=== PATIENT | female | born 1950 | race Caucasian/White ===

== ENCOUNTER 2023-01-13 10:43 | Emergency (ER) | payer MEDICARE ==
[~2023-01-13] VITALS: Ht 157.5 cm; Wt 68.0 kg
[2023-01-13 11:18] LABS: HEMATOCRIT 36.6 % (31.2-41.9); MEAN CORPUSCULAR HEMOGLOBIN 29.9 uug (24.7-32.8); MEAN CORPUSCULAR VOLUME 91.3 fL (75.5-95.3); PLATELET COUNT (AUTO) 264 K/uL (179-408)
--- NOTE | 2023-01-13 11:24 | NUR ---
ED doctor has seen the patient and EKG is done and pt is now going to CT scan.
[2023-01-13 11:31] LABS: ALANINE AMINOTRANSFERASE 25 U/L (14-59); ALKALINE PHOSPHATASE 64 U/L (50-136); ASPARTATE AMINOTRANSFERASE 24 U/L (15-37); BILIRUBIN,DIRECT 0.2 mg/dL (0.0-0.2); BILIRUBIN,TOTAL 0.9 mg/dL (0.2-1.0); CARBON DIOXIDE 26 mmol/L (21-32); CHLORIDE 104 mmol/L (98-107); CREATININE 0.6 mg/dL (0.6-1.3); GLUCOSE 101 mg/dL (74-106); TOTAL PROTEIN, SERUM 6.4 g/dL (6.4-8.2); UREA NITROGEN, BLOOD 22 mg/dL (7-18)
[2023-01-13 13:30] VITALS: BP 153/89
== END 2023-01-13 13:36 | disposition home or self-care (01) ==
LOC: ER 10:43
DX: R53.1 Weakness (principal); R51.9 Headache, unspecified; R07.89 Other chest pain
CPT/HCPCS: 36415; 70450; 71045; 84484; 85025; 93005; A4663

== ENCOUNTER 2023-01-30 23:22 | Emergency (ER) | payer MEDICARE, OTHER ==
[~2023-01-30] VITALS: Ht 157.5 cm; Wt 68.0 kg
--- NOTE | 2023-01-31 | NUR ---
Patient walked to ER with steady gait
[2023-01-31] MEDS ORDERED: HYDROMORPHONE 1 MG/1 ML DISP.SYRIN IV ONE ×2 (00:30→04:00)
[2023-01-31] MEDS ORDERED: ONDANSETRON 4 MG/2 ML VIAL IV ONE ×2 (00:30→04:00)
[2023-01-31] MEDS ORDERED: HYDROMORPHONE 1 MG/1 ML DISP.SYRIN ONE ×2 (00:46→03:48)
[2023-01-31] MEDS ORDERED: ONDANSETRON 4 MG/2 ML VIAL ONE ×2 (00:46→03:48)
[2023-01-31] MEDS ORDERED: BLOO-1730 MC ×2 (00:54→04:08)
[2023-01-31 00:55] LABS: *BILIRUBIN,URIN NEGATIVE (NEGATIVE); *BLOOD, URINE NEGATIVE (NEGATIVE); *CLARITY,URINE CLEAR (CLEAR); *COLOR,URINE YELLOW (YELLOW); *KETONES,URINE NEGATIVE (NEGATIVE); *UROBILINOGEN,URINE 0.2 E.U./dl (NORMAL); LEUKOCYTE ESTERASE ,URINE NEGATIVE (NEGATIVE); NITRITE, URINE NEGATIVE (NEGATIVE); UGLUCOSE NEGATIVE (NEGATIVE)
[2023-01-31 00:55] LABS: HEMATOCRIT 36.3 % (31.2-41.9); MEAN CORPUSCULAR HEMOGLOBIN 29.1 uug (24.7-32.8); MEAN CORPUSCULAR VOLUME 89.7 fL (75.5-95.3); PLATELET COUNT (AUTO) 343 K/uL (179-408)
[2023-01-31 01:07] LABS: CREATININE 0.8 mg/dL (0.6-1.3)
[2023-01-31] MEDS ORDERED: SWABABLE VALVE TRANSFER SET EA MC ONE (01:55)
[2023-01-31] MEDS ORDERED: IOHEXOL 300MG/ML 100 ML INFUS..BTL ONE (01:55)
[2023-01-31] MEDS ORDERED: IV NORMAL SALINE 250 ML IV ONE (01:57)
--- NOTE | 2023-01-31 02:10 | NUR ---
Patient taken to CT in stable condition by roly López via wheelchair
--- NOTE | 2023-01-31 02:22 | NUR ---
Patient is back from CT scan
[2023-01-31] MEDS ORDERED: HYDR-3980 PO (03:59)
[2023-01-31 04:35] LABS: BILIRUBIN,DIRECT 0.1 mg/dL (0.0-0.2); BILIRUBIN,TOTAL 0.3 mg/dL (0.2-1.0)
--- NOTE | 2023-01-31 04:39 | NUR ---
Patient discharged to home in stable condition. Written and verbal after care instructions given. Patient verbalizes understanding of instructions. Stressed follow up or return to ER for worsening s/s. Patient is a/ox4, NAD noted. patient accompanied by her niece
[2023-01-31 04:40] VITALS: BP 138/78
== END 2023-01-31 04:40 | disposition home or self-care (01) ==
LOC: ER 23:25
DX: S22.42XA Multiple fractures of ribs, left side, initial encounter for closed fracture (principal); D72.0 Genetic anomalies of leukocytes; R73.9 Hyperglycemia, unspecified; Z90.710 Acquired absence of both cervix and uterus; Z79.899 Other long term (current) drug therapy; W01.0XXA Fall on same level from slipping, tripping and stumbling without subsequent striking against object, initial encounter; Y93.89 Activity, other specified; Y92.89 Other specified places as the place of occurrence of the external cause; Y99.8 Other external cause status
CPT/HCPCS: 99285; 74177; 96374; 96375; 80076; 80048; 81003; 85025; 36415; 71101; 96376; J2405 ×2; Q9967; J1170 ×2; A4663

== ENCOUNTER → 2025-03-05 | Emergency (ER) | payer MEDICARE ==
[~2025-03-05] VITALS: Ht 162.6 cm; Wt 66.2 kg
[~2025-03-05] MED LIST: BLOO-1730 MC; HYDR-3980 PO; LORAZEPAM 0.5 MG TABLET ONE
[2025-03-05 12:54] VITALS: O2SAT 98
[2025-03-05] MEDS: LORAZEPAM 0.5 MG TABLET PO ONE (13:39)
[2025-03-05 13:44] LABS: BASOPHILS # (AUTO) 0.1 K/UL (0.0-0.2); EOSINOPHILS # (AUTO) 0.1 K/uL (0.0-0.7); EOSINOPHILS % (AUTO) 1.8 % (0.0-7.0); HEMATOCRIT 31.2 % (31.2-41.9); HEMOGLOBIN 10.6 g/dL (10.9-14.3); LYMPHOCYTES # (AUTO) 1.2 K/uL (0.8-4.8); LYMPHOCYTES % (AUTO) 22.8 % (20.5-51.5); MEAN CORPUSCULAR HEMOGLOBIN 33.3 uug (24.7-32.8); MEAN CORPUSCULAR HGB CONC 34 g/dL (32.3-35.6); MEAN CORPUSCULAR VOLUME 98.2 fL (75.5-95.3); MONOCYTES # (AUTO) 0.2 K/uL (0.1-1.30); MONOCYTES % (AUTO) 4.6 % (0.0-11.0); NEUTROPHILS # (AUTO) 3.6 K/uL (1.8-8.9); NEUTROPHILS % (AUTO) 69.8 % (38.5-71.5); PLATELET COUNT (AUTO) 200 K/uL (179-408); RED BLOOD CELL COUNT(AUTO) 3.18 MIL/uL (3.63-4.92); RED CELL DISTRIBUTION WIDTH 15.6 % (12.3-17.7); WHITE BLOOD COUNT (AUTO) 5.2 K/uL (3.8-11.8)
[2025-03-05 13:52] LABS: DIFFERENTIAL COMMENT 1
[2025-03-05 13:54] LABS: CARBON DIOXIDE 26 mmol/L (21-32); CHLORIDE 101 mmol/L (98-107); CREATININE 0.6 mg/dL (0.6-1.3); GLUCOSE 104 mg/dL (74-106); SODIUM SERUM 136 mmol/L (136-145); UREA NITROGEN, BLOOD 14 mg/dL (7-18)
[2025-03-05 14:01] LABS: ALANINE AMINOTRANSFERASE 28 U/L (14-59); ALBUMIN 3.2 g/dL (3.4-5.0); ALKALINE PHOSPHATASE 66 U/L (50-136); ASPARTATE AMINOTRANSFERASE 28 U/L (15-37); BILIRUBIN,DIRECT 0.1 mg/dL (0.0-0.2); BILIRUBIN,TOTAL 0.4 mg/dL (0.2-1.0); TOTAL PROTEIN, SERUM 6.1 g/dL (6.4-8.2)
== END | disposition home or self-care (01) ==
LOC: ER 12:46
DX: R42 Dizziness and giddiness (principal); R07.9 Chest pain, unspecified; F41.9 Anxiety disorder, unspecified; R25.2 Cramp and spasm; C50.911 Malignant neoplasm of unspecified site of right female breast
CPT/HCPCS: 36415; 71045; 83735; 85025; 85730; A4606; A4663